=== PATIENT | male | born 1985 | race Caucasian/White ===

== ENCOUNTER 2023-05-26 19:28 | Emergency (ER) | payer SELFPAY ==
[2023-05-26] MEDS ORDERED: Benzocaine 20% Spray 60 ML CAN ONE (20:12)
[2023-05-26] MEDS ORDERED: Lidocaine 1% w/Epinephrine 1:100K 20 ML VIAL ONE (20:12)
[2023-05-26] MEDS ORDERED: Ketorolac Tromethamine 30 MG/ML VIAL ONE (20:23)
== END 2023-05-26 21:04 | disposition home or self-care (01) ==
LOC: ERS 19:28
DX: J36 Peritonsillar abscess (principal); F17.210 Nicotine dependence, cigarettes, uncomplicated
CPT/HCPCS: 96372; 99282; J1885